=== PATIENT | female | born 1960 | race Caucasian/White ===

== ENCOUNTER 2019-03-09 19:39 | Emergency (ER) | payer MEDICARE, MEDICAID ==
[~2019-03-09 19:39] MED LIST: (None)10 MG OR; ALPRAZOLAM1 MG OR; AMITRIPTYLIN50 MG OR; BUPROPION OR; DARVOCET N-100100 - OR; HYDROCHLOROT25 MG OR; PRILOSEC40 MG OR; VICODIN ES1 TAB OR
== END 2019-03-09 20:16 | disposition left against medical advice (07) ==
LOC: ED 19:39 → LWOBS 20:16
DX: Z91.19 Patient's noncompliance with other medical treatment and regimen (principal)

== ENCOUNTER 2020-07-09 18:10 | Emergency (ER) | payer MEDICARE, MEDICAID ==
[~2020-07-09] VITALS: Ht 167.6 cm; Wt 93.0 kg
[2020-07-09] MEDS ORDERED: PROZAC20 MG PO (18:31)
[2020-07-09] MEDS ORDERED: WELLBUTRIN XL300 MG PO (18:31)
[2020-07-09 20:23] LABS: HEMATOCRIT 37.5 % (37.0-47.0); HEMOGLOBIN 12.1 g/dl (12.0-16.0); IMMATURE GRANULOCYTES 0.2 % (0.0-5.0); MEAN CORPUSCULAR HGB 30.3 pG CALC (26.0-32.0); MEAN CORPUSCULAR HGB CONC 32.3 g/dL CAL (32.0-36.0); NEUT# 8.28 thou/uL (2.00-7.15); RED BLOOD COUNT 3.99 mill/uL (4.20-5.60); RED CELL DISTRI WIDTH 12.8 % (11.5-15.5)
[2020-07-09 20:37] LABS: ALBUMIN 4.7 g/dL (3.2-5.0); ALKALINE PHOSPHATASE 85 u/l (38-126); ANION GAP 17 (6-22 (CALC)); BILIRUBIN, TOTAL 0.5 mg/dL (0.0-1.4); BUN 24 mg/dL (7-17); BUN/CREATININE RATIO 27 (12-20 (CALC)); CARBON DIOXIDE 22 mmol/l (22-30); CHLORIDE 101 mmol/l (95-108); CREATININE 0.9 mg/dL (0.5-1.0); GFR > 60 ML/MIN (>=60 (CALC)); GFR FOR AFR.AMER. > 60 ML/MIN (>=60 (CALC)); POTASSIUM 5.1 mmol/l (3.5-5.1); SGOT/AST 29 u/l (14-36); SODIUM 135 mmol/l (137-146)
[2020-07-09 20:54] LABS: ACT PARTIAL THROMBO TIME 26.5 SECONDS (20.0-32.5); PROTHROMBIN TIME 10.3 SECONDS (9.0-12.5)
[2020-07-09 21:46] VITALS: BP 135/88
== END 2020-07-09 21:40 ==
LOC: ED 18:10
DX: M65.841 Other synovitis and tenosynovitis, right hand (principal); L03.011 Cellulitis of right finger; S62.630A Displaced fracture of distal phalanx of right index finger, initial encounter for closed fracture; I10 Essential (primary) hypertension; W56.52XA Struck by other fish, initial encounter

== ENCOUNTER 2023-03-23 15:44 | Emergency (ER) | payer MEDICARE, MEDICAID ==
[~2023-03-23] VITALS: Ht 167.6 cm; Wt 91.0 kg
[~2023-03-23 15:44] MED LIST changes: +PROZAC20 MG PO; +WELLBUTRIN XL300 MG PO
[2023-03-23 16:25] LABS: BASO% 0.2 % (0-3); EOS% 1.5 % (0-8); HEMATOCRIT 35.5 % (37.0-47.0); HEMOGLOBIN 11.6 g/dl (12.0-16.0); IMMATURE GRANULOCYTES 0.1 % (0.0-5.0); MEAN CELL VOLUME 94.9 fL CALC (80.0-100.0); MEAN CORPUSCULAR HGB CONC 32.7 g/dL CAL (32.0-36.0); MONO% 5.9 % (2-13); NEUT# 5.9 thou/uL (2.00-7.15); NEUT% 72.3 % (42-76); RED BLOOD COUNT 3.74 mill/uL (4.20-5.60); RED CELL DISTRI WIDTH 12.6 % (11.5-15.5)
[2023-03-23 16:37] LABS: ALBUMIN 4.3 g/dL (3.2-5.0); ALKALINE PHOSPHATASE 75 u/l (38-126); ANION GAP 14 (6-22 (CALC)); BILIRUBIN, TOTAL 0.4 mg/dL (0.02-1.3); BUN 24 mg/dL (8-23); BUN/CREATININE RATIO 21 (12-20 (CALC)); CARBON DIOXIDE 22 mmol/l (22-30); CHLORIDE 107 mmol/l (95-108); CREATININE 1.1 mg/dL (0.5-1.0); ETHYL ALCOHOL 0 mg/dl (0-30); GFR FOR AFR.AMER. > 60 ML/MIN (>=60 (CALC)); GFR OTHER RACES 50 ML/MIN (>=60 (CALC)); POTASSIUM 4.1 mmol/l (3.5-5.1); SGOT/AST 26 u/l (9-36); SODIUM 138 mmol/l (137-146); TOTAL PROTEIN 7.4 g/dL (6.3-8.2)
[2023-03-23 16:43] VITALS: BP 149/75
[2023-03-23 16:45] VITALS: BP 139/74
[2023-03-23 16:50] LABS: ACT PARTIAL THROMBO TIME 24.6 SECONDS (20.0-32.5); INTERNATIONAL NORMALIZED RATIO 1.1 RATIO (0.7-1.3); PROTHROMBIN TIME 10.2 SECONDS (9.0-12.5)
[2023-03-23] MEDS ORDERED: PERCOCET 5/325M1 TAB PO (17:12)
[2023-03-23] MEDS ORDERED: LORTAB 1010 MG PO ×3 (18:33→20:05)
[2023-03-23] MEDS ORDERED: FLEXERIL5 M1 PO ×2 (19:00→19:59)
[2023-03-23 19:59] VITALS: BP 139/74
[2023-03-24] MEDS ORDERED: OMNI-PAC300 MG PO (07:26)
== END 2023-03-23 20:18 | disposition home or self-care (01) ==
LOC: ED 15:44
PROVIDERS: Nurse Practitioner Family
PROC: 0HQ0XZZ Repair Scalp Skin, External Approach (ICD-10-PCS; principal; 2023-03-23)
PROC: 2W3DX1Z Immobilization of Left Lower Arm using Splint (ICD-10-PCS; 2023-03-23)
DX: S01.01XA Laceration without foreign body of scalp, initial encounter (principal); S52.502A Unspecified fracture of the lower end of left radius, initial encounter for closed fracture; S52.612A Displaced fracture of left ulna styloid process, initial encounter for closed fracture; I10 Essential (primary) hypertension; W55.22XA Struck by cow, initial encounter; Y93.K9 Activity, other involving animal care; Y92.79 Other farm location as the place of occurrence of the external cause; Z79.82 Long term (current) use of aspirin